=== PATIENT | male | born 1990 | race Caucasian/White ===

== ENCOUNTER 2017-09-29 21:35 | Emergency (ER) | payer MEDICAID ==
[2017-09-29 21:53] VITALS: RESP 16
--- NOTE | 2017-09-29 21:53 | EDPHY ---
H & P Source: Patient Exam Limitations: No limitations - Personal History Current Tetanus/Diphtheria Vaccine: Yes - Medical/Surgical History Hx Asthma: No Hx Chronic Respiratory Disease: No Hx Diabetes: No Hx Cardiac Disease: No Hx Renal Disease: No Hx Cirrhosis: No Hx Alcoholism: No Hx HIV/AIDS: No Hx Splenectomy or Spleen Trauma: No - Family History Significant Family History: No pertinent family hx - Social History Smoking Status: Current some day smoker Alcohol Use: Sober Drug Use: None Time Seen by Provider: 09/29/17 21:50 HPI/ROS: CHIEF COMPLAINT: Left great toe injury HISTORY OF PRESENT ILLNESS: The patient is a 27-year-old man who was using a pitchfork to shovel new or and accidentally stuck it through his boot into his left great toe. He has a puncture wound to the medial aspect of his great toe. This happened about 5 hours ago. It is become increasingly swollen and contused and painful. He states that it is starting to radiate up his foot. No fever. No erythema. REVIEW OF SYSTEMS: Constitutional: denies: chills, fever, recent illness, recent injury EENTM: denies: blurred vision, double vision, nose congestion Respiratory: denies: cough, shortness of breath Cardiac: denies: chest pain, irregular heart rate, lightheadedness, palpitations Gastrointestinal/Abdominal: denies: abdominal pain, diarrhea, nausea, vomiting, blood streaked stools Genitourinary: denies: dysuria, frequency, hematuria, pain Musculoskeletal: denies: joint pain, muscle pain Skin: See HPI Neurological: denies: headache, numbness, paresthesia, tingling, dizziness, weakness Hematologic/Lymphatic: denies: blood clots, easy bleeding, easy bruising Immunologic/allergic: denies: HIV/AIDS, transplant EXAM: GENERAL: Well-appearing, well-nourished and in no acute distress. HEAD: Atraumatic, normocephalic. EYES: Pupils equal round and reactive to light, extraocular movements intact, sclera anicteric, conjunctiva are normal. ENT: TMs normal, nares patent, oropharynx clear without exudates. Moist mucous membranes. NECK: Normal range of motion, supple without lymphadenopathy or JVD. LUNGS: Breath sounds clear to auscultation bilaterally and equal. No wheezes rales or rhonchi. HEART: Regular rate and rhythm without murmurs, rubs or gallops. ABDOMEN: Soft, nontender, normoactive bowel sounds. No guarding, no rebound. No masses appreciated. BACK: No CVA tenderness, no spinal tenderness, step-offs or deformities EXTREMITIES: Normal range of motion, no pitting or edema. No clubbing or cyanosis. NEUROLOGICAL: Cranial nerves II through XII grossly intact. Normal speech, normal gait. 5/5 strength, normal movement in all extremities, normal sensation PSYCH: Normal mood, normal affect. SKIN: Contusion with very small puncture wound to left great toe. Minimal swelling to the base of the toe. (Beni Magaña) Constitutional: Initial Vital Signs Temperature (C) 98.1 F 09/29/17 21:40 Heart Rate 112 H 09/29/17 21:40 Respiratory Rate 16 09/29/17 21:40 Blood Pressure 125/89 H 09/29/17 21:40 O2 Sat (%) 97 09/29/17 21:40 O2 Delivery Mode Room Air Allergies/Adverse Reactions: peanut Allergy (Verified 09/29/17 22:37) Penicillins Allergy (Verified 09/29/17 21:47) Home Medications: Medication Instructions Recorded Clindamycin HCl [Clindamycin] 300 mg PO TID #30 cap 09/29/17 Medical Decision Making - Diagnostics Imaging: Discussed imaging studies w/ hydrological technical officer Radiologist - Diagnostics Imaging Results: Imaging Impressions Toe X-Ray 09/29/17 21:44 Impression: Possible puncture injury in the dorsal medial cortex of the distal first proximal phalanx. No evidence for radiopaque foreign body. ED Course/Re-evaluation: 10:28 p.m. I discussed the case with the radiologist who agrees that there is a cortical bone defect. He does not believe that the joint is involved or that there is a bony fragment in the joint. Discussed the case with the PA on-call for Dr. Melchor. We will start IV antibiotics. She does not think that it needs to have I and D in the OR but will consult Dr. Melchor. 10:[address] Melchor's PA called back and requested we consult Podiatry. 11:00 p.m. care transferred to Dr. Oden. The patient is receiving IV vancomycin and Rocephin. I have written a prescription for clindamycin. We are still waiting for Podiatry to call back. 11:10 p.m. I discussed the case with Dr. Belem Brown from Podiatry. She will follow up with him on Sunday. She agrees with the antibiotic selection. She agrees with no I and D here in the ER. (Beni Magaña) Differential Diagnosis: Partial list of the Differential diagnosis considered include but were not limited to; puncture wound, infection, fracture and although unlikely based on the history and physical exam, I also considered tendon injury, nerve injury, vascular injury. I discussed these differential diagnoses and the plan with the patient as well as the usual and expected course. The patient understands that the diagnosis is provisional and that in medicine we are not always correct and that further workup is often warranted. Usual and customary warnings were given. All of the patient's questions were answered. The patient was instructed to return to the emergency department should the symptoms at all worsen or return, otherwise to followup with the physician as we discussed. (Beni Magaña) Other Provider: Patient signed out to me awaiting completion of antibiotic infusion. Receiving Rocephin IVPB, Vancomycin IVPB and Rx for Clindamycin. Tetanus updated. Follow up with Podiatry on Sunday (prior provider discussed plan of care with Podiatry senior economist). Take home pack of Clindamycin given as well. (Cecilia Odne) - Data Points Medications Given: Discontinued Medications Hydrocodone Bitart/Acetaminophen ([place] 5/325) 2 tab PO EDNOW ONE Stop: 09/29/17 21:56 Last Admin: 09/29/17 21:59 Dose: 2 tab Departure - Departure Disposition: Home, Routine, Self-Care Clinical Impression: Puncture wound Condition: Fair Instructions: Puncture Wound (ED) Referrals: NONE *PRIMARY CARE P,. [Primary Care Provider] - As per Instructions Belem Brown DPM [Doctor of Podiatric Medicine] - 10/01/17 Prescriptions: Clindamycin HCl [Clindamycin] 300 mg PO TID #30 cap
[2017-09-29] MEDS ORDERED: HYDROCODONE/APAP 5/325 TAB PO ONE (21:55)
[2017-09-29 22:56] VITALS: BP 100/60; O2SAT 94
[2017-09-29] MEDS ORDERED: VANCOMYCIN 1 GM in NS 250 ML IV ONE (22:58)
[2017-09-29] MEDS ORDERED: TDAP ADULT 0.5 ML INJ (BOOSTRIX) IM ONE (23:12)
[2017-09-29] MEDS ORDERED: CLINDAMYCIN 150MG PREPACK#6 BTL TAKEHOME ONE (23:49)
[2017-09-29] MEDS ORDERED: KETOROLAC 15 MG/1 ML SDV IVP ONE (23:54)
[2017-09-30 01:52] VITALS: PULSE 78; TEMP 97.7
== END 2017-09-30 02:05 | disposition home or self-care (01) ==
LOC: CED 21:35
DX: S91.132A Puncture wound without foreign body of left great toe without damage to nail, initial encounter (principal); F17.200 Nicotine dependence, unspecified, uncomplicated; Z91.010 Allergy to peanuts; W27.1XXA Contact with garden tool, initial encounter
CPT/HCPCS: 73660-PO; 96365; J0696; J1885; J3370

== ENCOUNTER → 2018-02-18 | Outpatient (CLI) | payer MEDICAID | LOC: CIMAGING 08:23 | PROVIDERS: ATTEND Family Medicine | DX: R10.9 Unspecified abdominal pain (principal); G89.29 Other chronic pain | CPT/HCPCS: 76700-PO ==

== ENCOUNTER → 2018-02-22 | Outpatient (CLI) | payer MEDICAID ==
[~2018-02-22] MED LIST: IOPAMIDOL (ISOVUE-300) 100 ML BTL ONE
== END ==
LOC: CIMAGING 14:20
PROVIDERS: ATTEND Family Medicine
DX: D73.89 Other diseases of spleen (principal); G89.29 Other chronic pain
CPT/HCPCS: 74177-PO; Q9967